=== PATIENT | female | born 1990 | race Caucasian/White ===

== ENCOUNTER → 2021-01-03 | Outpatient (CLI) | payer OTHER | END | disposition home or self-care (01) | LOC: STAR 12:16 | PROVIDERS: ATTEND Obstetrics & Gynecology | DX: Z20.822 Contact with and (suspected) exposure to COVID-19 (principal) | CPT/HCPCS: U0003; U0005 ==

== ENCOUNTER 2021-01-20 09:32 | Emergency (ER) | payer OTHER ==
[~2021-01-20] VITALS: Ht 157.5 cm; Wt 80.5 kg
[~2021-01-20 09:32] MED LIST: IBUP-1222 PO
--- NOTE | 2021-01-20 10:44 | NUR ---
pt ambulated to room with a steady gait. changed into hospital gown.
[2021-01-20] MEDS ORDERED: PNV1TAB.5 PO (10:47)
--- NOTE | 2021-01-20 10:47 | NUR ---
pt states she has light bleed s/p C/S 2 weeks ago that was mostly done. pt states she woke at 0800 and felt like she had increased "wetness" stood and felt a gushing. At that time she noticed a large amount of bleed in her underwear. pt states she has a "little" cramping on the right near incision.
--- NOTE | 2021-01-20 11:15 | NUR ---
UA obtained and sent to lab. pt denies needs at this time.
[2021-01-20] MEDS ORDERED: SODIUM CHLORIDE 0.9% 1,000ML IVBOLUS ONE (11:30)
[2021-01-20] MEDS ORDERED: SODIUM CHLORIDE FLUSH 10ML SYR IVF ONE (11:30)
[2021-01-20 11:44] VITALS: BP 100/66
[2021-01-20 11:47] LABS: BASOPHILS % (AUTO) 1 % (0-1); EOSINOPHILS % (AUTO) 2 % (1-7); LYMPHOCYTES % (AUTO) 27 % (22-44); MEAN CORPUSCULAR HEMOGLOBIN 24.6 pg (27.0-34.8); MEAN CORPUSCULAR HGB CONC 32.8 g/dL (32.4-35.8); MEAN PLATELET VOLUME 8.1 fL (7.4-10.4); MONOCYTES % (AUTO) 5 % (2-9); NEUTROPHILS % (AUTO) 66 % (42-75); PLATELET COUNT 308 x10^3/uL (130-400); RED BLOOD COUNT 5.04 x10^6/uL (3.82-5.3); RED CELL DISTRIBUTION WIDTH 15.1 % (9.6-15.2)
[2021-01-20 11:59] LABS: ALANINE AMINOTRANSFERASE 26 U/L (12-78); ALBUMIN 3.3 g/dL (3.4-5.0); ANION GAP 7 mmol/L (5-15); CALCIUM 8.8 mg/dL (8.5-10.1); CHLORIDE 109 mmol/L (98-107); CREATININE 0.62 mg/dL (0.55-1.02)
[2021-01-20 12:04] LABS: ALKALINE PHOSPHATASE 138 U/L (45-117); BILIRUBIN,TOTAL 0.4 mg/dL (0.2-1.0)
--- NOTE | 2021-01-20 13:00 | NUR ---
pt up to bathroom with a steady gait.
--- NOTE | 2021-01-20 13:41 | NUR ---
Report given to Daphne
--- NOTE | 2021-01-20 14:23 | NUR ---
first contact with pt for dc/ dc home safely with , IV dc cath intact. To f/u with milieu technician. Return to ER if worse or concerns.
== END 2021-01-20 14:25 | disposition home or self-care (01) ==
LOC: ED 14:06
DX: N93.9 Abnormal uterine and vaginal bleeding, unspecified (principal); R42 Dizziness and giddiness
CPT/HCPCS: 36415; 80053; 84702; 85025; 86850; 86900; 96360; 99283; J7030